=== PATIENT | female | born 1945 | race Caucasian/White ===

== ENCOUNTER 2016-07-29 04:20 | Outpatient (CLI) | payer MEDICARE, OTHER | END 2016-07-29 04:21 | disposition home or self-care (01) | DX: E11.65 Type 2 diabetes mellitus with hyperglycemia (principal); N39.0 Urinary tract infection, site not specified ==

== ENCOUNTER 2016-10-06 08:00 | Outpatient (CLI) | payer MEDICARE, OTHER | END 2016-10-06 08:01 | disposition home or self-care (01) | DX: N30.01 Acute cystitis with hematuria (principal) ==

== ENCOUNTER 2017-02-11 16:30 | Outpatient (CLI) | payer MEDICARE, OTHER | END 2017-02-11 16:31 | disposition home or self-care (01) | LOC: LAB.R 16:30 | PROVIDERS: ATTEND Physician Assistant Medical | DX: N30.00 Acute cystitis without hematuria (principal) | CPT/HCPCS: 87086 ==

== ENCOUNTER 2017-09-07 08:00 | Outpatient (CLI) | payer MEDICARE, OTHER | END 2017-09-07 08:01 | LOC: LAB.R 08:00 | PROVIDERS: ATTEND Physician Assistant Medical | DX: N30.00 Acute cystitis without hematuria (principal) | CPT/HCPCS: 81001; 81003; 87086; 87181 ==

== ENCOUNTER 2017-10-19 12:29 | Outpatient (CLI) | payer MEDICARE, OTHER | END 2017-10-19 12:30 | disposition home or self-care (01) | LOC: DI 12:29 | PROVIDERS: ATTEND Nurse Practitioner Primary Care | DX: R01.1 Cardiac murmur, unspecified (principal) | CPT/HCPCS: 93306 ==

== ENCOUNTER 2017-12-08 10:03 | Outpatient (CLI) | payer MEDICARE, OTHER ==
[2017-12-08 18:05] LABS: BASOPHILS % (AUTO) 0.8 %; EOSINOPHILS # (AUTO) 0.1 10^3/uL (0.0-0.7); EOSINOPHILS % (AUTO) 2.4 %; HGB - HEMOGLOBIN 14.1 g/dL (12.0-16.0); LYMPHOCYTES # (AUTO) 1.1 10^3/uL (1.5-3.5); LYMPHOCYTES % (AUTO) 21.1 %; MEAN CORPUSCULAR HEMOGLOBIN 32.7 pg (27.0-31.0); MEAN CORPUSCULAR HGB CONC 34.4 g/dL (32.0-36.0); MEAN PLATELET VOLUME 8.1 fL (7.9-10.8); MONOCYTES # (AUTO) 0.4 10^3/uL (0.0-1.0); MONOCYTES % (AUTO) 7.8 %; NEUTROPHILS # (AUTO) 3.5 10^3/uL (1.5-6.6); NEUTROPHILS % (AUTO) 67.9 %; PLT - PLATELET COUNT 221 10^3/uL (130-450); WHITE BLOOD COUNT 5.2 x10^3/uL (4.8-10.8)
[2017-12-08 18:43] LABS: ALBUMIN/GLOBULIN RATIO 1.4 (1.0-2.2); ALKALINE PHOSPHATASE 74 IU/L (42-121); ALT ALANINE AMINOTRANSFERASE 20 IU/L (10-60); AST ASPARTATE AMINOTRANSFERASE 21 IU/L (10-42); BILIRUBIN,TOTAL 0.7 mg/dL (0.2-1.0); BUN - BLOOD UREA NITROGEN 15 mg/dL (6-20); CARBON DIOXIDE - CO2 28 mmol/L (21-32); CHLORIDE 106 mmol/L (101-111); CHOL/HDL RATIO 2.9 (<4.4); CHOLESTEROL 223 mg/dL; CREATININE 0.8 mg/dL (0.4-1.0); GFR - MDRD 70 (>89); GLUCOSE 111 mg/dL (70-100); HDL CHOLESTEROL 76 mg/dL; LDL CHOLESTEROL,CALCULATED 124 mg/dL; LDL/HDL RATIO 1.6 (<4.4); SODIUM 141 mmol/L (135-145); TOTAL PROTEIN 6.8 g/dL (6.7-8.2); VLDL CHOLESTEROL 23 mg/dL
== END 2017-12-08 10:04 | disposition home or self-care (01) ==
LOC: LAB.F 10:03
PROVIDERS: ATTEND Internal Medicine
DX: E78.5 Hyperlipidemia, unspecified (principal); Z79.899 Other long term (current) drug therapy; F32.9 Major depressive disorder, single episode, unspecified
CPT/HCPCS: 36415; 80053; 80061; 83721; 84443; 85025

== ENCOUNTER 2017-12-10 15:04 | Outpatient (CLI) | payer MEDICARE, OTHER ==
--- NOTE | 2017-12-11 01:44 | Ultrasound Report ---
Reason: POSTMENOPAUSAL BLEEDING Procedure Date: 12/10/2017 Accession Number: [id number] / [id number] Procedure: US - Pelvic w/Transvaginal CPT Code: FULL RESULT: EXAM: PELVIC ULTRASOUND EXAM DATE: 12/10/2017 04:26 PM. CLINICAL HISTORY: Postmenopausal bleeding. COMPARISON: Pelvic with transvaginal 07/02/2015. TECHNIQUE: Realtime transabdominal pelvic scan performed to identify the uterus and adnexa and as an overview of other pelvic structures, followed by transvaginal scan to provide greater detail of the uterus and adnexa, with static image documentation. FINDINGS: Uterus: 5.3 x 3.5 x 3.5 cm, volume 34.0 cc. Retroverted and retroflexed position. No masses are noted. Heterogeneous parenchyma. Masses: None. Endometrium: 8.3 mm. Thickened heterogeneous endometrium. No invasion of the myometrium is noted. Cervix: Unremarkable. Right Ovary: 7.3 x 6.4 x 5.9 cm, volume 144.2 cc. Normal echotexture and blood flow. Anechoic 6.4 x 5.6 x 5.8 cm right ovarian cyst. No wall irregularities, mural nodules or thickened septations. Previously measuring 5 x 3.8 x 3.6 cm. Left Ovary: 3.5 x 2.7 x 3.4 cm, volume 16.8 cc. Normal echotexture and blood flow. Solid-appearing left ovarian avascular mass measuring at least 2.4 x 3.3 cm. Low level internal echoes. No thickened septations or mural nodules are noted. Free Fluid: None. Other: None. IMPRESSION: 1. Thickened endometrium measuring 8.3 mm. This is thicker than typically seen for a postmenopausal woman. Differential includes endometrial hyperplasia versus endometrial carcinoma. If symptoms persist, recommend endometrial sampling. Previously measuring 7 mm. 2. Slow increase in the size of the 6.4 cm simple right ovarian cyst. 3. Prominent solid-appearing component of the left ovary measuring up to 3.3 cm. No vascularity. Findings could be better characterized with MRI on an outpatient basis. Given a similar appearance, presume that this is likely benign and may be normal parenchyma. RADIA
== END 2017-12-10 15:05 | disposition home or self-care (01) ==
LOC: DI 15:04
PROVIDERS: ATTEND Obstetrics & Gynecology
DX: R93.8 Abnormal findings on diagnostic imaging of other specified body structures (principal); N83.291 Other ovarian cyst, right side; N83.9 Noninflammatory disorder of ovary, fallopian tube and broad ligament, unspecified
CPT/HCPCS: 76830; 76856

== ENCOUNTER 2017-12-16 08:00 | Outpatient (CLI) | payer MEDICARE, OTHER ==
[2017-12-16 19:01] LABS: HB2 TOTAL 15.2 g/dL; HEMOGLOBIN A1C 0.51 g/dL; HEMOGLOBIN A1C % 5.2 % (4.6-6.2)
== END 2017-12-16 08:01 | disposition home or self-care (01) ==
LOC: LAB.R 08:00
PROVIDERS: ATTEND Internal Medicine
DX: R73.9 Hyperglycemia, unspecified (principal); N83.9 Noninflammatory disorder of ovary, fallopian tube and broad ligament, unspecified
CPT/HCPCS: 83036; 86304

== ENCOUNTER 2017-12-31 15:06 | Outpatient (CLI) | payer MEDICARE, OTHER ==
--- NOTE | 2018-01-04 15:01 | Mammography Report ---
Reason: SCREENING MAMMO Procedure Date: 12/31/2017 Accession Number: [id number] / [id number] Procedure: KAVEH - Screening Mammo Dig Bilat CPT Code: FULL RESULT: EXAM: Screening Mammo Dig Bilat DATE: 12/31/2017 3:36 PM CLINICAL HISTORY: 72-year-old female with family history of breast cancer in a sister at the age of 68. TECHNIQUE: Bilateral CC and MLO views were obtained. COMPARISON: 03/17/2016, 02/11/2012, 02/04/2012, 12/25/2006. FINDINGS: The breasts demonstrate scattered fibroglandular densities bilaterally. No suspicious masses, clustered microcalcifications, or regions of architectural distortion are identified. IMPRESSION: Negative examination RECOMMENDATION: Routine annual screening unless otherwise clinically indicated. BIRADS CATEGORY 1: Negative STANDARD QUALIFYING STATEMENTS: 1. This examination was not reviewed with the aid of Computer-Aided Detection (CAD). 2. A negative or benign imaging report should not delay biopsy if clinically suspicious findings are present. Consider surgical consultation if warrented. More than 5% of cancers are not identified by imaging. 3. Dense breasts may obscure an underlying neoplasm. 4. This examination was reviewed without the aid of 3D breast imaging (tomosynthesis).
== END 2017-12-31 15:07 | disposition home or self-care (01) ==
LOC: DI 15:06
PROVIDERS: ATTEND Internal Medicine
DX: Z12.31 Encounter for screening mammogram for malignant neoplasm of breast (principal); Z80.3 Family history of malignant neoplasm of breast
CPT/HCPCS: 77067

== ENCOUNTER 2018-02-03 07:25 | Day surgery (SDC) | payer MEDICARE, OTHER ==
--- NOTE | 2018-02-02 11:31 | PREOP HISTORY & PHYSICAL ---
DATE OF ADMISSION: 02/03/2018 Physician: Ashely Clement DO PREOPERATIVE HISTORY AND PHYSICAL IDENTIFICATION: This is a 72-year-old G3, P-3-0-0-3. HISTORY OF PRESENT ILLNESS: I have known patient since 2015, when she had an episode of postmenopausal bleeding. A 07/09/2015 endometrial biopsy revealed inactive endometrium. A 07/02/2015 pelvic ultrasound showed endometrial lining that was complex, measuring 7 mm. Patient was given medroxyprogesterone acetone and recommended to follow up if this reoccurs. On 11/27/2017 patient returned to see me, saying that she continued to have spotting. Workup revealed a 12/10/2017 pelvic ultrasound showing uterus measuring 5.3 x 3.5 x 3.5 cm. Uterus is retroflexed and retroverted. Endometrium measures 8.3 mm. The right ovary measures 7.3 x 6.4 x 5.9 cm. There is anechoic 6.4 x 5.6 x 5.8 cm right ovarian cyst. There were no wall irregularities, mural nodules, or thickened septations. Left ovary measures 3.5 x 2.7 x 3.4 cm. Solid appearing left ovarian vascular mass measures 2.4 x 3.3 cm. Given these findings, I discussed with patient and her , Rory, my recommendations for laparoscopic bilateral salpingo-oophorectomy as well as a hysteroscopy, dilatation and curettage. I have discussed with Rory and patient the risks, benefits, alternatives, indications, expectations of surgery. This included the risk of hemorrhage, infection, damage to surrounding organs which may be an inadvertent laceration, cauterization, or ligation of the adjacent intestines, ureters, or bladder. With respect to the hysteroscopy, there is an increased risk of uterine perforation. After all of Rory and patient's questions were answered to their satisfaction, they verbalized their desire to proceed with surgery. Consent forms have been signed. PAST MEDICAL HISTORY 1. intracerebral hemorrhage. 2. Stroke affecting her left side. 3. Borderline diabetes mellitus. 4. Hypercholesterolemia. PAST SURGICAL HISTORY 1. Tonsillectomy. 2. Craniotomy. 3. PEG tube placement. MEDICATIONS 1. Oxybutynin. 2. Paroxetine. 3. Diltiazem. 4. Doxazosin 5. Losartan. 6. Metformin. 7. Omeprazole. She uses [facility] in [place]. SOCIAL HISTORY: She denies any tobacco or illicit drug use. She does consume wine on a rare occasion. Patient is to Rory, and they have 3 children and 9 grandchildren. PAST SURGICAL HISTORY: Three term spontaneous vaginal deliveries, largest one was 9 pounds 2 ounces. PAST GYNECOLOGIC HISTORY: All Pap smears have been within normal limits. Patient has a history of postmenopausal bleeding. FAMILY HISTORY: Noncontributory. REVIEW OF SYSTEMS: Negative unless otherwise stated. PHYSICAL EXAMINATION VITAL SIGNS: Weight is 207 pounds, height 66 inches, BMI 33.4. GENERAL: Patient is a well-developed, well-nourished female who is very pleasant. She has difficulty speaking and has a difficult time recalling specific words and she has short-term memory. HEENT: Within normal limits. HEART: Regular, no murmurs or rubs. LUNGS: Lungs are clear to auscultation bilaterally. ABDOMEN: Soft. No peritoneal signs. ASSESSMENT 1. A 72-year-old G3, P-3-0-0-3. 2. Postmenopausal bleeding. 3. Bilateral ovarian masses. PLAN 1. We will proceed to a scheduled laparoscopic bilateral salpingo-oophorectomy with pelvic washings, as well as a hysteroscopy, dilatation and curettage. 2. Patient will see me in 2 weeks for routine postoperative visit. 3. Prescription for Vicodin and Motrin for patient's recovery. 4. Patient knows to call should she have any worsening fevers, chills, abdominal pain, or vaginal bleeding. TD: 02/02/2018 10:02 [facility]
[~2018-02-03 07:25] MED LIST: ACETAMINOPHEN 1,000 MG/100 ML 100 ML IV ONE; CELECOXIB 100 MG CAPSULE PO ONE; LACTATED RINGERS 1,000 ML IV ONE
--- NOTE | 2018-02-03 08:05 | ANESTHESIA ---
Pre-Anesthesia VS, & Labs - Diagnosis post menopausal bleeding, neoplasm of left ovary - Procedure myosure hysteroscopy, dilation and curratage, laparoscopic salpingectomy Vital Signs: Temp Pulse Resp BP Pulse Ox 37.0 C 60 16 158/77 H 97 02/03/18 07:49 02/03/18 07:49 02/03/18 07:49 02/03/18 07:49 02/03/18 07:49 Height 5 ft 5 in Weight (kg) 90.72 kg - NPO >8 hours - Is Patient ?: Not Applicable - Lab Results Current Lab Results: Laboratory Tests 02/03/18 07:53: POC Whole Bld Glucose 113 H Lab results reviewed: Yes Home Medications and Allergies Diltiazem HCl [Diltiazem 24Hr ER] 240 mg PO BID 11/24/12 Losartan [Cozaar] 100 mg PO DAILY 11/24/12 Metformin HCl [Fortamet] 500 mg PO BID 11/24/12 PARoxetine [Paxil] 40 mg PO DAILY 11/24/12 Pravastatin Sodium [Pravachol] 40 mg PO DAILY 11/24/12 Allergies/Adverse Reactions: Allergies Allergy/AdvReac Type Severity Reaction Status Date / Time amitriptyline [Amitriptyline] Allergy unknown Verified 04/30/14 18:21 epinephrine Allergy Unknown Verified 04/30/14 18:23 oxycodone [Oxycodone] Allergy unkown Verified 04/30/14 18:21 pseudoephedrine Allergy unknown Verified 04/30/14 18:21 Sulfa (Sulfonamide Allergy unkown Verified 04/30/14 18:21 Antibiotics) tetracycline [Tetracycline] Allergy unkown Verified 04/30/14 18:21 Anes History & Medical History - Anesthetic History Anesthesia Complications: reports: No previous complications Family history of Anesthesia Complications: Denies Family history of Malignant Hyperthermia: Denies - Medical History Cardiovascular: reports: Hypertension, High cholesterol Pulmonary: reports: Shortness of breath Gastrointestinal: reports: GERD Urinary: reports: Frequency Musculoskeletal: reports: Osteoarthritis Endocrine/Autoimmune: reports: Type 2 diabetes Skin: reports: None Smoking Status: Never smoker - Surgical History Eyes Ears Nose Throat (EENT): Cataracts Neurologic: Craniotomy Dermatologic: Skin cancer surgery Exam General: Other (had stroke has aphasia) Dental: WNL Mouth Openin Fingerbreadth Neck Mobility: Normal Mallampati classification: II Thyromental Distance: greater than 6 cm Respiratory: Lungs clear, Normal breath sounds, No respiratory distress, No accessory muscle use Cardiovascular: Regular rate, Normal S1, Normal S2, No murmurs Plan Anesthesia Type: General Consent for Procedure(s) Verified and Reviewed: Yes Code Status: Attempt Resuscitation ASA classification: 2-Mild systemic disease Is this case an emergency?: No
[2018-02-03] MEDS ORDERED: LIDOCAINE 1% 50 ML MDV ONE (09:11)
[2018-02-03] MEDS ORDERED: LIDOCAINE 1% 50 ML MDV SUBQ ONE ×2 (09:43)
[2018-02-03] MEDS ORDERED: PROPOFOL 200 MG/20 ML VIAL IVP ONE (10:00)
[2018-02-03] MEDS ORDERED: DEXAMETHASONE 4 MG/ML VIAL IVP ONE (10:00)
[2018-02-03] MEDS ORDERED: GLYCOPYRROLATE 1 MG/5 ML VIAL IVP ONE (10:00)
[2018-02-03] MEDS ORDERED: ONDANSETRON 4 MG/2 ML VIAL IVP ONE (10:00)
[2018-02-03] MEDS ORDERED: NEOSTIGMINE 1 MG/1 ML 10 ML MDV IVP ONE (10:00)
[2018-02-03] MEDS ORDERED: KETAMINE 500 MG/10 ML VIAL IVP ONE (10:00)
[2018-02-03] MEDS ORDERED: LIDOCAINE-MPF 2% 5 ML VIAL IM ONE (10:00)
[2018-02-03] MEDS ORDERED: MIDAZOLAM 2 MG/2 ML VIAL IVP ONE (10:00)
[2018-02-03] MEDS ORDERED: ACETAMINOPHEN 1,000 MG/100 ML 100 ML IV ONE (10:00)
[2018-02-03] MEDS ORDERED: ROCURONIUM 50 MG/5 ML VIAL IVP ONE (10:00)
[2018-02-03] MEDS ORDERED: METOPROLOL 5 MG/5 ML VIAL IVP ONE (10:00)
[2018-02-03] MEDS ORDERED: fentaNYL 100 MCG/2 ML VIAL IVP ONE (10:00)
[2018-02-03] MEDS ORDERED: LACTATED RINGERS 1,000 ML IV ONE (10:44)
[2018-02-03] MEDS ORDERED: INSULIN REGULAR HUMAN 100 UNIT/1 ML 10 ML MDV ONE (10:54)
[2018-02-03] MEDS ORDERED: METHYLENE BLUE 0.5% 50 MG/10 ML AMPULE ONE (10:57)
[2018-02-03] MEDS ORDERED: METHYLENE BLUE 0.5% 50 MG/10 ML AMPULE IV ONE (10:58)
--- NOTE | 2018-02-03 12:02 | OPERATIVE REPORT ---
Operative Report - Other Other Information/Narrative: Date of Operation: 02/03/2018 Surgeon: Ashely Clement DO FACOG Bread Oven Operator: None Alcoholic Counselor: Leann Dahl CRNA Anesthesia: GET Pre-op Dx: 1. 72 yo 2. Postmenopausal bleeding 3. Bilateral ovarian masses Post-op Dx: 1. 72 yo 2. Postmenopausal bleeding 3. Bilateral ovarian masses Procedure: 1. Laparoscopic bilateral salpingo-oophorectomy 2. Hysteroscopic resection of polyp via Myosure 3. Cystoscopy Findings: 1. Atrophic uterus 2. Large cystic right ovary 3. 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 Small anterior endometrial polyp 5. Normal bladder with bilateral ureteral jets visualized Specimens: 1. Pelvic washings 2. Aspirate from right ovary 3. Right and left ovaries and fallopian tubes in separate specimen containers 4. Endometrial curettings Drains: None EBL: 100 mL Complications: None BRIEF HISTORY: This is a patient of [facility]. Alicia has a history of postmenopausal bleeding. Due to her discomfort from a previous endometrial biopsy she elected to undergo endometrial sampling under general anesthesia. In addition, work up for her postmenopausal bleeding revealed bilateral ovarian masses. I discussed with Chantel the risks, benefits, alternatives, indications and expectations of a laparoscopic bilateral salpingo- oophorectomy, hysteroscopy, and dilation and curettage. Included in the discussion were the risks of infection, hemorrhage and damage to surrounding organs which may include, but is not limited to, an inadvertent laceration, cauterization or ligation of the adjacent intestines, ureters and bladder. With respect to the hysteroscopy the most common complication is uterine performation. After all of the patient's questions were answered to her satisfaction, she verbalized her desire to proceed with the aforementioned surgery. Consent forms have been signed. OPERATION IN DETAIL: The patient was identified, consented, and taken to the operating room, where IV accesses were then placed. She was given sequential compression devices which were placed on her lower extremities and turned on. The patient had been given satisfactory general endotracheal tube anesthesia as per Leann Dahl. Antibiotics were not indicated in this case. The patient was then prepped and draped in normal sterile fashion in the lithotomy position using the Yellofin stirrups. Her bladder was drained with in and out Soriano catheter. Timeout was performed, which correctly identified the patient, site of the procedure, and the procedure itself. Three laparoscopic port sites were first identified. The first two were all of 5 mm in length, located in subumbilical fold and in the right lower quadrants, 2 fingerbreadths superior and medial from the anterior posterior iliac spine. A third 12 mm trocar was placed in the left lower quadrant, 2 fingerbreadths superior and medial to the anterior superior iliac spine. All port sites were injected with plain 1% lidocaine. These port sites were also reinjected at the termination of the case for better postoperative pain control. A total of 20 mL were used for the entirety of the case. Stab incisions were made. Entrance to the abdomen was first made with the 5 mm Visiport trocar directly. No trauma to intraabdominal organs was noted. After visual confirmation of entry into the abdomen was made, CO2 gas was used to insufflate the abdomen. Satisfactory pneumoperitoneum was then obtained. The 2 lower quadrant laparoscopic port sites were then placed under direct visualization with the camera. No trauma to intraabdominal organs were noted. Survey of the abdomen and pelvis revealed a very socked in left adnexa and an enlarged right adnexa. The anatomy was noted to be quite distorted. The uterus was very small, consistent with menopause. The right fallopian tube was first identified and followed out to its fimbriated end. The right adnexa was carefully inspected. Again the anatomy was distorted due to the enlarged ovary. Inspection of the right pelvis did not show the right ureter frankly. An incision was made through the right insertion of the fallopian tube into the uterus. The right ovary was then bluntly dissected from the broad ligament. The right ureter was then attempted to be identified by dissection of the retroperitoneum. Again due to the abnormal anatomy I could not find the ureter. A fourth, 5 mm trocar was placed in the midline inferior to the supraumbilical port. This was used to retract the bowel for better visualization. The right ovary was then excised from the pelvis and removed via the Endocatch bag. The right ovary was aspirated in the Endocatch bag with a needle so that the ovary and fallopian tube were removed without additional trauma and that the fluid would not seed the pelvis and abdomen. Next, the left adnexa was addressed. The adnexa was socked behind the uterus in the cul-de-sac. Inadvertent lacerations to the ovary revealed a thick, brown, opaque fluid consistent with an endometrioma. The adnexa was buntly and sharply excised. Portions of the ovary were likely left on the peritoneum as I perferred not to injure the rectum posteriorly. This too was removed via an Endocatch bag. Attention was then turned to the hysteroscopy, dilation and curettage. The cervix was identified and then dilated to a 5-Estonian. The MyoSure hysteroscopic system was then placed into the uterus and normal saline solution was used as a distending medium. Upon visualization of the endom etrium, there was a polyp coming from the anterior endometrium. No other abnormalities were noted. Normal tubal ostia bilaterally were noted. With the MyoSure LITE, the polyps was excised from the endometrium. The specimens were sent to pathology. There was no bleeding fro m the cervix or vagina. Finally cystoscopy was performed since I could locate the ureters. A 30-degree cystoscope was placed in the bladder and the bladder was inspected. 0.9% NaCl was used as the distending media. No trauma, bleeding or sutures were noted in the bladder. Both ureteral jets were seen. The cystoscope was removed. I returned to the abdomen for closure of the laparoscopy. The 12 mm incision was closed with a 0-vicryl using a Smith-Tomason peritoneal closure. All instruments then were removed out of the abdomen and the CO2 gas was allowed to egress into the atmosphere, relieving the pneumoperitoneum. All 4 laparoscopic port sites were then closed with 4- 0 Monocryl in subcuticular fashion. Dermabond was finally placed on top of the incisions. All sponge, lap and needle counts were correct times two as per nurse report. The patient tolerated the procedure well and was taken back to recovery room in stable condition. The patient will be discharged to home later today after postoperative criteria are met. The patient is to followup with myself at [facility] [place] [facility] in 2 weeks for routine postop visit. She has been instructed to take ibuprofen as well as Tylenol as her main form of pain control. She has a prescription for Vicodin for any breakthrough pain she may experience. The patient understands to call should she have any worsening fevers, chills, abdominal pain or vaginal bleeding.
[2018-02-03] MEDS ORDERED: LORazepam 2 MG/ML VIAL IVP PRN (12:38)
[2018-02-03] MEDS ORDERED: HYDROcod/ACETAM 5/325 MG TABLET PO PRN (12:38)
[2018-02-03] MEDS ORDERED: ONDANSETRON 4 MG/2 ML VIAL IVP PRN (12:38)
[2018-02-03] MEDS ORDERED: LACTATED RINGERS 500 ML IV ONE ×2 (14:05)
[2018-02-03 14:20] VITALS: BP 160/78
== END 2018-02-03 07:26 | disposition home or self-care (01) ==
LOC: SDS 07:25
PROVIDERS: ATTEND Obstetrics & Gynecology
PROC: 0TJB8ZZ Inspection of Bladder, Via Natural or Artificial Opening Endoscopic (ICD-10-PCS; 2018-02-03)
PROC: 0UT24ZZ Resection of Bilateral Ovaries, Percutaneous Endoscopic Approach (ICD-10-PCS; principal; 2018-02-03 09:00)
PROC: 0UT74ZZ Resection of Bilateral Fallopian Tubes, Percutaneous Endoscopic Approach (ICD-10-PCS; 2018-02-03 09:00)
PROC: 0UB98ZZ Excision of Uterus, Via Natural or Artificial Opening Endoscopic (ICD-10-PCS; 2018-02-03 09:00)
DX: N84.0 Polyp of corpus uteri (principal); D27.1 Benign neoplasm of left ovary; D27.0 Benign neoplasm of right ovary; I10 Essential (primary) hypertension; R73.03 Prediabetes; I69.354 Hemiplegia and hemiparesis following cerebral infarction affecting left non-dominant side; I69.320 Aphasia following cerebral infarction; E78.00 Pure hypercholesterolemia, unspecified; K21.9 Gastro-esophageal reflux disease without esophagitis; Z85.828 Personal history of other malignant neoplasm of skin; Z86.79 Personal history of other diseases of the circulatory system
CPT/HCPCS: 58558; 58661; A9270; J0131; J1815; J7120

== ENCOUNTER 2018-02-11 14:45 | Emergency (ER) | payer MEDICARE, OTHER ==
--- NOTE | 2018-02-11 15:14 | ED Physician Documentation ---
PD HPI FEMALE - Stated complaint Stated Complaint: FEM -POST OP - Chief complaint Chief Complaint: Abd Pain - History obtained from History obtained from: Patient, Family - History of Present Illness Timing - onset: How many hours ago (2) Timing - duration: Hours (2) Timing - details: Abrupt onset, Intermittant Pain level max: 0 Pain level max: 0 Associated symptoms: Abdominal pain, Vaginal bleeding. No: Fever, Back pain, Pelvic pain, Vaginal pain, Vaginal discharge, Dysuria, Urinary frequency, Hematuria Recently seen: Surgery - Additional information Additional information: 72-year-old female with history of hypertension and recent surgery for uterine mass and vaginal bleeding. Dr. Ashely Clement performed laparoscopic exploration and removal of her fallopian tubes and ovaries and mass in the uterus last February 03. Patient stated since surgery she has been having intermittent spotting. However today she had large amount of bleeding twice. She states she has abdominal pain related to the surgery. Review of Systems Ten Systems: 10 systems reviewed and negative Constitutional: denies: Fever, Chills, Myalgias Respiratory: denies: Dyspnea GI: reports: Abdominal Pain. denies: Abdominal Swelling, Nausea, Vomiting, Constipation, Diarrhea, Bloody / black stool : reports: Vaginal bleeding. denies: Dysuria, Incontinent, Hematuria, Discharge Musculoskeletal: denies: Back pain Neurologic: denies: Generalized weakness PD PAST MEDICAL HISTORY - Past Medical History Cardiovascular: Hypertension, High cholesterol Respiratory: Shortness of breath Endocrine/Autoimmune: Type 2 diabetes GI: GERD : Frequency HEENT: Chronic vision loss Psych: Depression, Anxiety Musculoskeletal: Osteoarthritis Derm: None - Past Surgical History Past Surgical History: Yes General: Colonoscopy Neuro: Craniotomy HEENT: Cataracts Derm: Skin cancer surgery - Present Medications Home Medications: Ambulatory Orders Medication Instructions Recorded Confirmed Diltiazem HCl [Diltiazem 24Hr ER] 240 mg PO BID 11/24/12 02/03/18 Losartan [Cozaar] 100 mg PO DAILY 11/24/12 02/03/18 Metformin HCl [Fortamet] 500 mg PO BID 11/24/12 02/03/18 PARoxetine [Paxil] 40 mg PO DAILY 11/24/12 02/03/18 Pravastatin Sodium [Pravachol] 40 mg PO DAILY 11/24/12 02/03/18 - Allergies Allergies/Adverse Reactions: Allergies Allergy/AdvReac Type Severity Reaction Status Date / Time amitriptyline [Amitriptyline] Allergy unknown Verified 02/11/18 14:51 epinephrine Allergy Unknown Verified 02/11/18 14:51 oxycodone [Oxycodone] Allergy unkown Verified 02/11/18 14:51 pseudoephedrine Allergy unknown Verified 02/11/18 14:51 Sulfa (Sulfonamide Allergy unkown Verified 02/11/18 14:51 Antibiotics) tetracycline [Tetracycline] Allergy unkown Verified 02/11/18 14:51 - Social History Does the pt smoke?: No Smoking Status: Never smoker Does the pt drink ETOH?: Yes Does the pt have substance abuse?: No - POLST Patient has POLST: No PD ED PE NORMAL - Vitals Vital signs reviewed: Yes - General General: Alert and oriented X 3, No acute distress, Well developed/nourished - HEENT HEENT: EOMI - Neck Neck: Supple, no meningeal sign - Cardiac Cardiac: RRR, No murmur - Respiratory Respiratory: No respiratory distress, Clear bilaterally - Abdomen Abdomen: Normal bowel sounds, Soft, Non tender, Non distended, Other (Purplish ecchymosis and 2 laparoscopic incisional site that is approximated.) - Derm Derm: Warm and dry - Extremities Extremities: No deformity - Neuro Neuro: Alert and oriented X 3 - Psych Psych: Normal mood, Normal affect Results - Vitals Vitals: Vital Signs - 24 hr 02/11/18 14:48 Temperature 36.0 C L Heart Rate 63 Respiratory 16 Rate Blood Pressure 176/78 H O2 Saturation 98 Oxygen O2 Source Room air - Labs Labs: Laboratory Tests 02/11/18 02/11/18 15:33 15:33 WBC 7.0 RBC 3.83 L Hgb 12.5 Hct 36.2 L MCV 94.6 MCH 32.6 H MCHC 34.5 RDW 12.5 Plt Count 244 MPV 7.2 L Neut # (Auto) 4.7 Lymph # (Auto) 1.3 L Mckinley # (Auto) 0.8 Eos # (Auto) 0.2 Baso # (Auto) 0.0 Absolute Nucleated RBC 0.00 Nucleated RBC % 0.0 Sodium 137 Potassium 3.9 Chloride 105 Carbon Dioxide 24 Anion Gap 8.0 BUN 21 H Creatinine 1.0 Estimated GFR (MDRD) 54 L Glucose 124 H Calcium 8.6 PD MEDICAL DECISION MAKING - ED course Complexity details: considered differential (Postop vaginal bleeding, anemia), d/w patient, d/w family (Pt and spouse informed of test results and consult with EMERGENCY MEDICINE SPECIALIST. Agreed with plan of outpatient followup. Pt just went to the bathroom and pad unchanged; no further bleeding.), d/w baby registry sales consultant - Consults Consults: Discussed case with (Dr Nathan, OB pest control service representative covering for pt's EMERGENCY MEDICINE SPECIALIST dr Clement. Case discussed including labs. He stated pt can be followed up at the clinic. They can call tomorrow for appt) Departure - Departure Disposition: Home, Self Care Clinical Impression: Vaginal bleeding, Post-operative pain Post-op bleeding Qualifiers: Surgical complication system/body Area: genitourinary Procedure type: genitourinary Qualified Code(s): N99.820 - Postprocedural hemorrhage of a genitourinary system organ or structure following a genitourinary system procedure Condition: Stable Instructions: Abdominal Pain Follow-Up: Ashely Clement, [Provider Admit Priv/Credential] - Comments: Call your EMERGENCY MEDICINE SPECIALIST tomorrow for an appointment to reevaluate your postop vaginal bleeding. If worse return to the emergency room.
[2018-02-11 15:42] LABS: BASOPHILS % (AUTO) 0.5 %; EOSINOPHILS # (AUTO) 0.2 10^3/uL (0.0-0.7); EOSINOPHILS % (AUTO) 2.7 %; HGB - HEMOGLOBIN 12.5 g/dL (12.0-16.0); LYMPHOCYTES # (AUTO) 1.3 10^3/uL (1.5-3.5); LYMPHOCYTES % (AUTO) 18.8 %; MEAN CORPUSCULAR HEMOGLOBIN 32.6 pg (27.0-31.0); MEAN CORPUSCULAR HGB CONC 34.5 g/dL (32.0-36.0); MEAN CORPUSCULAR VOLUME 94.6 fL (81.0-99.0); MEAN PLATELET VOLUME 7.2 fL (7.9-10.8); MONOCYTES # (AUTO) 0.8 10^3/uL (0.0-1.0); NEUTROPHILS # (AUTO) 4.7 10^3/uL (1.5-6.6); PLT - PLATELET COUNT 244 10^3/uL (130-450); RED BLOOD COUNT 3.83 10^6/uL (4.20-5.40); RED CELL DISTRIBUTION WIDTH 12.5 % (12.0-15.0)
[2018-02-11 15:51] LABS: CALCIUM 8.6 mg/dL (8.5-10.3)
[2018-02-11 17:01] VITALS: BP 164/70
== END 2018-02-11 17:01 | disposition home or self-care (01) ==
LOC: ED 14:45
DX: N99.820 Postprocedural hemorrhage of a genitourinary system organ or structure following a genitourinary system procedure (principal); G89.18 Other acute postprocedural pain; I10 Essential (primary) hypertension; E11.9 Type 2 diabetes mellitus without complications; Z79.84 Long term (current) use of oral hypoglycemic drugs
CPT/HCPCS: 36415; 80048; 85025; 99283

== ENCOUNTER 2018-11-01 | Outpatient (CLI) | payer MEDICARE, OTHER | END 2018-11-01 11:16 | disposition home or self-care (01) | DX: E11.9 Type 2 diabetes mellitus without complications (principal) ==

== ENCOUNTER 2018-12-30 08:00 | Outpatient (CLI) | payer MEDICARE, OTHER ==
[2018-12-30 16:57] LABS: BILIRUBIN,URINE NEGATIVE (NEGATIVE); GLUCOSE, URINE (UA) NEGATIVE (NEGATIVE); KETONES,URINE (UA) TRACE mg/dL (NEGATIVE); LEUKOCYTE ESTERASE, URINE TRACE (NEGATIVE); NITRITE,URINE NEGATIVE (NEGATIVE); OCCULT BLOOD,URINE NEGATIVE (NEGATIVE); PH,URINE 6.5 PH (5.0-7.5); PROTEIN,URINE NEGATIVE (NEGATIVE); UROBILINOGEN,URINE 0.2 (NORMAL) E.U./dL (NORMAL)
[2018-12-30 17:01] LABS: CLARITY,URINE CLEAR (CLEAR)
[2018-12-30 17:32] LABS: BACTERIA,URINE Rare /HPF (None Seen); RBC,URINE None Seen /HPF (0-5); SQUAMOUS EPITHELIAL CELL,UR FEW Squamous (<= Few)
== END 2018-12-30 23:59 | disposition home or self-care (01) ==
LOC: LAB.R 08:00
PROVIDERS: ATTEND Family Medicine
DX: R30.0 Dysuria (principal)
CPT/HCPCS: 81001; 81003; 87086

== ENCOUNTER 2019-11-16 16:30 | Outpatient (CLI) | payer MEDICARE, OTHER ==
--- NOTE | 2019-11-16 17:18 | XRAY Report ---
PROCEDURE: Sinus Complete INDICATIONS: LEFT MAXILARRY SINUSITIS TECHNIQUE: 3 views of the sinuses were acquired. COMPARISON: None FINDINGS: Sinuses: The visualized sinuses demonstrate no air-fluid levels or mucosal thickening. The visualiz ed mastoids also appear clear. Bones: No suspicious bony lesions. Nasal septum is midline. IMPRESSION: Bilateral paranasal sinuses are fairly well aerated. No gross facial bone or nasal bone abnormality. Reviewed by: Raymundo Landrum MD on 11/16/2019 5:16 PM PDT Approved by: Raymundo Landrum MD on 11/16/2019 5:16 PM PDT Station ID: [id number]
== END 2019-11-16 16:31 | disposition home or self-care (01) ==
LOC: DI 16:30
PROVIDERS: ATTEND Nurse Practitioner Family
DX: J32.0 Chronic maxillary sinusitis (principal)
CPT/HCPCS: 70220

== ENCOUNTER 2019-11-17 15:01 | Outpatient (CLI) | payer MEDICARE, OTHER | END 2019-11-17 15:02 | disposition critical access hospital (66) | LOC: EMS 15:01 | PROVIDERS: ATTEND Surgery | DX: S09.90XA Unspecified injury of head, initial encounter (principal); M54.2 Cervicalgia; S50.811A Abrasion of right forearm, initial encounter; W01.0XXA Fall on same level from slipping, tripping and stumbling without subsequent striking against object, initial encounter; Y93.01 Activity, walking, marching and hiking; Y92.007 Garden or yard of unspecified non-institutional (private) residence as the place of occurrence of the external cause | CPT/HCPCS: A0425; A0429 ==

== ENCOUNTER 2019-12-01 12:28 | Outpatient (CLI) | payer MEDICARE, OTHER ==
[2019-12-01 12:54] LABS: BASOPHILS % (AUTO) 0.9 %; EOSINOPHILS # (AUTO) 0.1 10^3/uL (0.0-0.7); HGB - HEMOGLOBIN 14.2 g/dL (12.0-16.0); LYMPHOCYTES # (AUTO) 1.1 10^3/uL (1.5-3.5); LYMPHOCYTES % (AUTO) 23.8 %; MEAN CORPUSCULAR HGB CONC 34.1 g/dL (32.0-36.0); MEAN CORPUSCULAR VOLUME 90.8 fL (81.0-99.0); MEAN PLATELET VOLUME 9.5 fL (7.9-10.8); MONOCYTES # (AUTO) 0.4 10^3/uL (0.0-1.0); MONOCYTES % (AUTO) 7.8 %; NEUTROPHILS % (AUTO) 64.3 %; PLT - PLATELET COUNT 229 10^3/uL (130-450); RED BLOOD COUNT 4.58 10^6/uL (4.20-5.40); RED CELL DISTRIBUTION WIDTH 12.7 % (12.0-15.0); WHITE BLOOD COUNT 4.6 x10^3/uL (4.8-10.8)
[2019-12-01 13:13] LABS: ALBUMIN 4.1 g/dL (3.2-5.5); ALBUMIN/GLOBULIN RATIO 1.5 (1.0-2.2); ALKALINE PHOSPHATASE 101 IU/L (42-121); ALT ALANINE AMINOTRANSFERASE 45 IU/L (10-60); AST ASPARTATE AMINOTRANSFERASE 34 IU/L (10-42); BILIRUBIN,TOTAL 0.8 mg/dL (0.2-1.0); BUN - BLOOD UREA NITROGEN 14 mg/dL (6-20); CALCIUM 9.3 mg/dL (8.5-10.3); CARBON DIOXIDE - CO2 29 mmol/L (21-32); CHLORIDE 104 mmol/L (101-111); CHOL/HDL RATIO 2.8 (<4.4); CHOLESTEROL 182 mg/dL; CREATININE 0.8 mg/dL (0.4-1.0); GLUCOSE 117 mg/dL (70-100); HDL CHOLESTEROL 65 mg/dL; LDL CHOLESTEROL,CALCULATED 97 mg/dL; LDL/HDL RATIO 1.5 (<4.4); SODIUM 142 mmol/L (135-145); TOTAL PROTEIN 6.8 g/dL (6.7-8.2); VLDL CHOLESTEROL 20 mg/dL
[2019-12-01 13:23] LABS: CREATININE,URINE 136.6 mg/dL; MICROALBUM/CREATININE RATIO,UR 109.8 ug/mg (<30.0)
[2019-12-01 20:22] LABS: HEMOGLOBIN A1c% 5.4 % (4.27-6.07)
== END 2019-12-01 12:29 | disposition home or self-care (01) ==
LOC: LAB 12:28
PROVIDERS: ATTEND Family Medicine
DX: E78.5 Hyperlipidemia, unspecified (principal); R73.09 Other abnormal glucose; N95.0 Postmenopausal bleeding; F32.9 Major depressive disorder, single episode, unspecified; R31.9 Hematuria, unspecified
CPT/HCPCS: 36415; 80053; 80061; 82043; 82570; 83036; 83721; 84443; 85025

== ENCOUNTER 2019-12-21 16:39 | Outpatient (CLI) | payer MEDICARE, OTHER ==
[2019-12-21 17:00] LABS: BASOPHILS % (AUTO) 0.6 %; EOSINOPHILS # (AUTO) 0.1 10^3/uL (0.0-0.7); HGB - HEMOGLOBIN 14.2 g/dL (12.0-16.0); LYMPHOCYTES # (AUTO) 1.9 10^3/uL (1.5-3.5); LYMPHOCYTES % (AUTO) 27.1 %; MEAN CORPUSCULAR HEMOGLOBIN 30.5 pg (27.0-31.0); MEAN CORPUSCULAR HGB CONC 33.5 g/dL (32.0-36.0); MEAN CORPUSCULAR VOLUME 91.2 fL (81.0-99.0); MEAN PLATELET VOLUME 9.3 fL (7.9-10.8); MONOCYTES # (AUTO) 0.5 10^3/uL (0.0-1.0); MONOCYTES % (AUTO) 7.3 %; NEUTROPHILS # (AUTO) 4.5 10^3/uL (1.5-6.6); NEUTROPHILS % (AUTO) 62.7 %; PLT - PLATELET COUNT 224 10^3/uL (130-450); RED BLOOD COUNT 4.65 10^6/uL (4.20-5.40); RED CELL DISTRIBUTION WIDTH 12.9 % (12.0-15.0); WHITE BLOOD COUNT 7.2 x10^3/uL (4.8-10.8)
== END 2019-12-21 16:40 | disposition home or self-care (01) ==
LOC: LAB 16:39
PROVIDERS: ATTEND Family Medicine
DX: J32.0 Chronic maxillary sinusitis (principal); K04.7 Periapical abscess without sinus
CPT/HCPCS: 36415; 85025; 85651; 86140

== ENCOUNTER 2020-09-23 09:08 | Outpatient (CLI) | payer MEDICARE, OTHER ==
[2020-09-23 09:46] LABS: BASOPHILS % (AUTO) 0.7 %; EOSINOPHILS # (AUTO) 0.2 10^3/uL (0.0-0.7); EOSINOPHILS % (AUTO) 3.4 %; HCT - HEMATOCRIT 40.4 % (37.0-47.0); HGB - HEMOGLOBIN 13.6 g/dL (12.0-16.0); LYMPHOCYTES # (AUTO) 1.3 10^3/uL (1.5-3.5); LYMPHOCYTES % (AUTO) 23.9 %; MEAN CORPUSCULAR HEMOGLOBIN 30.5 pg (27.0-31.0); MEAN CORPUSCULAR HGB CONC 33.7 g/dL (32.0-36.0); MEAN CORPUSCULAR VOLUME 90.6 fL (81.0-99.0); MEAN PLATELET VOLUME 9.2 fL (7.9-10.8); MONOCYTES # (AUTO) 0.5 10^3/uL (0.0-1.0); MONOCYTES % (AUTO) 8.2 %; NEUTROPHILS # (AUTO) 3.5 10^3/uL (1.5-6.6); NEUTROPHILS % (AUTO) 63.4 %; PLT - PLATELET COUNT 222 10^3/uL (130-450); RED BLOOD COUNT 4.46 10^6/uL (4.20-5.40); RED CELL DISTRIBUTION WIDTH 12.7 % (12.0-15.0); WHITE BLOOD COUNT 5.5 x10^3/uL (4.8-10.8)
[2020-09-23 10:00] LABS: ESTIMATED AVERAGE GLUCOSE 108 mg/dL (70-100); HEMOGLOBIN A1c% 5.4 % (4.27-6.07)
[2020-09-23 10:06] LABS: ALBUMIN 4.1 g/dL (3.2-5.5); ALBUMIN/GLOBULIN RATIO 1.6 (1.0-2.2); ALKALINE PHOSPHATASE 95 IU/L (42-121); ALT ALANINE AMINOTRANSFERASE 47 IU/L (10-60); AST ASPARTATE AMINOTRANSFERASE 31 IU/L (10-42); BILIRUBIN,TOTAL 0.8 mg/dL (0.2-1.0); BUN - BLOOD UREA NITROGEN 23 mg/dL (6-20); CALCIUM 9.2 mg/dL (8.5-10.3); CARBON DIOXIDE - CO2 27 mmol/L (21-32); CHLORIDE 107 mmol/L (101-111); CHOL/HDL RATIO 3.3 (<4.4); CHOLESTEROL 229 mg/dL; GFR - MDRD 54 (>89); GLUCOSE 115 mg/dL (70-100); HDL CHOLESTEROL 69 mg/dL; LDL CHOLESTEROL,CALCULATED 142 mg/dL; LDL/HDL RATIO 2.1 (<4.4); SODIUM 142 mmol/L (135-145); TOTAL PROTEIN 6.7 g/dL (6.7-8.2); TRIGLYCERIDES 89 mg/dL; VLDL CHOLESTEROL 18 mg/dL
[2020-09-23 10:17] LABS: THYROID STIMULATING HORMONE 3.64 uIU/mL (0.34-5.60)
== END 2020-09-23 09:09 | disposition home or self-care (01) ==
LOC: LAB 09:08
PROVIDERS: ATTEND Family Medicine
DX: K21.9 Gastro-esophageal reflux disease without esophagitis (principal); I69.259 Hemiplegia and hemiparesis following other nontraumatic intracranial hemorrhage affecting unspecified side; I10 Essential (primary) hypertension; E78.5 Hyperlipidemia, unspecified; R73.03 Prediabetes
CPT/HCPCS: 36415; 80053; 80061; 83036; 83721; 84443; 85025

== ENCOUNTER 2020-11-05 16:35 | Outpatient (CLI) | payer MEDICARE, OTHER ==
[2020-11-05 20:10] LABS: BILIRUBIN,URINE NEGATIVE (NEGATIVE); GLUCOSE, URINE (UA) NEGATIVE (NEGATIVE); KETONES,URINE (UA) TRACE mg/dL (NEGATIVE); LEUKOCYTE ESTERASE, URINE MODERATE (NEGATIVE); NITRITE,URINE NEGATIVE (NEGATIVE); OCCULT BLOOD,URINE LARGE (NEGATIVE); PROTEIN,URINE 100 mg/dL (NEGATIVE); UROBILINOGEN,URINE 0.2 (NORMAL) E.U./dL (NORMAL)
[2020-11-05 20:31] LABS: CLARITY,URINE CLOUDY (CLEAR); WBC,URINE >25 /HPF (0-5)
[2020-11-05 20:32] LABS: BACTERIA,URINE Rare /HPF (None Seen); CRYSTALS,URINE 0-2 Calcium Oxalate /LPF; RBC,URINE TNTC /HPF (0-5); SQUAMOUS EPITHELIAL CELL,UR NONE SEEN (<= Few); WBC CLUMPS,URINE PRESENT
== END 2020-11-05 23:59 | disposition home or self-care (01) ==
LOC: LAB.S 16:35
PROVIDERS: ATTEND Emergency Medicine
DX: R30.0 Dysuria (principal)
CPT/HCPCS: 81001; 87086; 87181

== ENCOUNTER 2020-12-18 11:14 | Outpatient (CLI) | payer MEDICARE, OTHER ==
[2020-12-18 11:35] LABS: BASOPHILS # (AUTO) 0.1 10^3/uL (0.0-0.1); BASOPHILS % (AUTO) 0.8 %; EOSINOPHILS # (AUTO) 0.3 10^3/uL (0.0-0.7); EOSINOPHILS % (AUTO) 4.1 %; HCT - HEMATOCRIT 40.6 % (37.0-47.0); HGB - HEMOGLOBIN 13.6 g/dL (12.0-16.0); LYMPHOCYTES # (AUTO) 1.1 10^3/uL (1.5-3.5); LYMPHOCYTES % (AUTO) 18.2 %; MEAN CORPUSCULAR HEMOGLOBIN 30.6 pg (27.0-31.0); MEAN CORPUSCULAR HGB CONC 33.5 g/dL (32.0-36.0); MEAN CORPUSCULAR VOLUME 91.4 fL (81.0-99.0); MONOCYTES # (AUTO) 0.5 10^3/uL (0.0-1.0); MONOCYTES % (AUTO) 7.9 %; NEUTROPHILS # (AUTO) 4.2 10^3/uL (1.5-6.6); NEUTROPHILS % (AUTO) 68.8 %; PLT - PLATELET COUNT 253 10^3/uL (130-450); RED BLOOD COUNT 4.44 10^6/uL (4.20-5.40); RED CELL DISTRIBUTION WIDTH 13.2 % (12.0-15.0); WHITE BLOOD COUNT 6.1 x10^3/uL (4.8-10.8)
[2020-12-18 11:46] LABS: CALCIUM 9.3 mg/dL (8.5-10.3); CREATININE 0.8 mg/dL (0.4-1.0)
[2020-12-18 12:45] LABS: ESTIMATED AVERAGE GLUCOSE 103 mg/dL (70-100); HEMOGLOBIN A1c% 5.2 % (4.27-6.07)
== END 2020-12-18 11:15 | disposition home or self-care (01) ==
LOC: LAB 11:14
PROVIDERS: ATTEND Family Medicine
DX: K62.5 Hemorrhage of anus and rectum (principal); E11.9 Type 2 diabetes mellitus without complications
CPT/HCPCS: 36415; 80048; 83036; 85025

== ENCOUNTER 2021-03-06 08:00 | Outpatient (CLI) | payer MEDICARE, OTHER | END 2021-03-06 23:59 | LOC: LAB.N 08:00 | PROVIDERS: ATTEND Physician Assistant | DX: R30.0 Dysuria (principal) | CPT/HCPCS: 87077; 87086; 87181 ==

== ENCOUNTER 2021-05-13 10:32 | Day surgery (SDC) | payer MEDICARE, OTHER ==
[2021-05-13] MEDS ORDERED: LACTATED RINGERS 1,000 ML IV ONE ×2 (11:17→12:24)
--- NOTE | 2021-05-13 11:20 | ANESTHESIA ---
Pre-Anesthesia VS, & Labs - Diagnosis rectal bleeding, history of polyps - Procedure colonoscopy, hemmorhoid banding Vital Signs: Temp Pulse Resp BP Pulse Ox 36 C L 65 16 156/75 H 96 05/13/21 10:55 05/13/21 10:55 05/13/21 10:55 05/13/21 10:55 05/13/21 10:55 Height: 5 ft 6 in Weight (kg): 96.1 kg Body Mass Index: 34.2 BMI Classification: Obese - NPO >8 hours - Is Patient ?: No Home Medications and Allergies Home Medications: Ambulatory Orders Calcium Carbonate [Calcium] 600 mg PO ONCE 05/02/21 Cholecalciferol [Vitamin D3] 25 mcg PO ONCE 05/02/21 Doxazosin [Cardura] 2 mg PO QPM 05/02/21 Lactobacillus Combination No.4 [Probiotic] 1 each PO ONCE 05/02/21 Magnesium Oxide [Magnesium] 400 mg PO ONCE 05/02/21 [place]-3/Dha/Epa/Fish Oil [Fish Oil 1,000 mg Softgel] 1 each PO DAILY 05/02/21 Selenium 50 mcg PO ONCE 05/02/21 Vitamin K2 100 mcg PO 05/02/21 Diltiazem HCl [Diltiazem 24Hr ER] 240 mg PO BID 11/24/12 Losartan [Cozaar] 50 mg PO DAILY 11/24/12 PARoxetine [Paxil] 40 mg PO DAILY 11/24/12 Pravastatin Sodium [Pravachol] 20 mg PO QPM 11/24/12 Calcium Carbonate [Calcium] 600 mg PO ONCE 05/02/21 Cholecalciferol [Vitamin D3] 25 mcg PO ONCE 05/02/21 Doxazosin [Cardura] 2 mg PO QPM 05/02/21 Lactobacillus Combination No.4 [Probiotic] 1 each PO ONCE 05/02/21 Magnesium Oxide [Magnesium] 400 mg PO ONCE 05/02/21 [place]-3/Dha/Epa/Fish Oil [Fish Oil 1,000 mg Softgel] 1 each PO DAILY 05/02/21 Selenium 50 mcg PO ONCE 05/02/21 Vitamin K2 100 mcg PO 05/02/21 Allergies/Adverse Reactions: Allergies Allergy/AdvReac Type Severity Reaction Status Date / Time amitriptyline [Amitriptyline] Allergy unknown Verified 02/11/18 14:51 oxycodone [Oxycodone] Allergy unkown Verified 02/11/18 14:51 pseudoephedrine Allergy unknown Verified 02/11/18 14:51 Sulfa (Sulfonamide Allergy unkown Verified 02/11/18 14:51 Antibiotics) tetracycline [Tetracycline] Allergy unkown Verified 02/11/18 14:51 epinephrine AdvReac Unknown Verified 05/02/21 12:40 Anes History & Medical History - Anesthetic History Anesthesia Complications: reports: No previous complications - Medical History Cardiovascular: reports: Hypertension, High cholesterol Pulmonary: reports: Shortness of breath, Sleep apnea Gastrointestinal: reports: GERD, Colon polyps Urinary: reports: Frequency Neuro: reports: CVA Musculoskeletal: reports: Osteoarthritis Endocrine/Autoimmune: reports: None Skin: reports: None Smoking Status: Never smoker - Surgical History General: reports: Colonoscopy Eyes Ears Nose Throat (EENT): reports: Cataracts Gynecologic: reports: Hysterectomy Neurologic: reports: Craniotomy Dermatologic: reports: Skin cancer surgery Exam General: Alert, Oriented x3 Dental: WNL Mouth Opening: Greater than 4 Fingerbreadths Neck Mobility: Normal Mallampati classification: II Respiratory: Lungs clear Cardiovascular: Regular rate, Normal S1, Normal S2 Plan Anesthesia Type: Total IV Consent for Procedure(s) Verified and Reviewed: Yes Code Status: Attempt Resuscitation ASA classification: 3-Severe systemic disease Is this case an emergency?: No
--- NOTE | 2021-05-13 12:34 | OPERATIVE REPORT ---
Operative Report - General Procedure Date: 05/13/21 Planned Procedure: Examination under anesthesia with hemorrhoid banding following colonoscopy Pre-Op Diagnosis: Bleeding internal hemorrhoids Procedure Performed: Examination under anesthesia with banding of internal hemorrhoids Post Op Diagnosis: Bleeding internal hemorrhoids - Procedure Note Primary Surgeon: Vivienne Anesthesia Provider: KALYAN Echevarria Anesthesia Technique: MAC Pathology: None Estimated Blood Loss (mL): 1 Findings: 1 very large and two smaller internal hemorrhoid complexes with stigmata of recent bleeding Complications: None apparent - Other Other Information/Narrative: Colonoscopy was completed immediately prior to the banding procedure. Timeout was done at the start of the colonoscopy procedure.The patient remained sedated with monitored anesthesia care at this time. All elements of the surgical safety checklist were followed before, during, and after this procedure. The anoscope with obturator was lubricated and placed in the patient's anal canal. The obturator was removed and the slots aligned to allow access to 3 column internal hemorrhoids. The device, the [employer] multi band ligator-short sh ot-was placed into the anal canal. The tip of the device was placed in contact with the tissue to be treated beginning at the 4 o'clock position. The suction port was closed. A single band was deployed and the suction port released.The band was noted to be in place.We next addressed the hemorrhoid complex at 7:00.The tip of the device was placed in contact with the tissue, the suction port covered, a band deployed, the suction port released. Again we were able to see that the band was in place.We next addressed the hemorrhoid at the 11 o'clock position. This was the smallest of the 3. The tip of the device was placed in contact with the tissue, the suction port covered, a band deployed, the suction port released. Again we were able to see that the band was in place.Examination of the anal count canal revealed all [address] The anoscope was removed and the procedure concluded. The patient tolerated the procedure well. She was allowed awaken from sedation and taken to the postanesthesia care unit in good condition.
[2021-05-13] MEDS ORDERED: ACETAMINOPHEN 1,000 MG/100 ML 100 ML IV ONE (12:49)
[2021-05-13] MEDS ORDERED: LIDOCAINE OINTMENT 5% 35.44 GM TUBE ONE (13:19)
[2021-05-13 13:53] VITALS: BP 165/72
== END 2021-05-13 10:33 | disposition home or self-care (01) ==
LOC: SDS 10:32
PROVIDERS: ATTEND Surgery
PROC: 0DBN8ZZ Excision of Sigmoid Colon, Via Natural or Artificial Opening Endoscopic (ICD-10-PCS; 2021-05-13)
PROC: 0DBP8ZZ Excision of Rectum, Via Natural or Artificial Opening Endoscopic (ICD-10-PCS; 2021-05-13)
PROC: 06LY8CC Occlusion of Hemorrhoidal Plexus with Extraluminal Device, Via Natural or Artificial Opening Endoscopic (ICD-10-PCS; 2021-05-13)
PROC: 0DBK8ZZ Excision of Ascending Colon, Via Natural or Artificial Opening Endoscopic (ICD-10-PCS; principal; 2021-05-13 12:00)
DX: K62.5 Hemorrhage of anus and rectum (principal); K64.8 Other hemorrhoids; D12.2 Benign neoplasm of ascending colon; K62.1 Rectal polyp; K63.5 Polyp of colon; E66.9 Obesity, unspecified; Z68.34 Body mass index [BMI] 34.0-34.9, adult; I45.10 Unspecified right bundle-branch block; G47.30 Sleep apnea, unspecified
CPT/HCPCS: 45380; 46221; 93005; A9270; J0131; J7120

== ENCOUNTER 2021-05-27 13:04 | Outpatient (CLI) | payer MEDICARE, OTHER ==
[2021-05-27 13:29] LABS: BASOPHILS # (AUTO) 0.1 10^3/uL (0.0-0.1); BASOPHILS % (AUTO) 0.9 %; EOSINOPHILS # (AUTO) 0.1 10^3/uL (0.0-0.7); EOSINOPHILS % (AUTO) 2.1 %; HCT - HEMATOCRIT 41.9 % (37.0-47.0); LYMPHOCYTES # (AUTO) 1.5 10^3/uL (1.5-3.5); MEAN CORPUSCULAR HEMOGLOBIN 30.2 pg (27.0-31.0); MEAN CORPUSCULAR HGB CONC 33.4 g/dL (32.0-36.0); MEAN CORPUSCULAR VOLUME 90.3 fL (81.0-99.0); MEAN PLATELET VOLUME 9.2 fL (7.9-10.8); MONOCYTES # (AUTO) 0.6 10^3/uL (0.0-1.0); MONOCYTES % (AUTO) 8.7 %; NEUTROPHILS # (AUTO) 4.4 10^3/uL (1.5-6.6); NEUTROPHILS % (AUTO) 66.1 %; PLT - PLATELET COUNT 259 10^3/uL (130-450); RED BLOOD COUNT 4.64 10^6/uL (4.20-5.40); RED CELL DISTRIBUTION WIDTH 13.1 % (12.0-15.0); WHITE BLOOD COUNT 6.6 x10^3/uL (4.8-10.8)
[2021-05-27 13:47] LABS: ALBUMIN 4.1 g/dL (3.2-5.5); ALBUMIN/GLOBULIN RATIO 1.3 (1.0-2.2); ALKALINE PHOSPHATASE 97 IU/L (42-121); ALT ALANINE AMINOTRANSFERASE 27 IU/L (10-60); AST ASPARTATE AMINOTRANSFERASE 25 IU/L (10-42); BILIRUBIN,TOTAL 0.7 mg/dL (0.2-1.0); BUN - BLOOD UREA NITROGEN 19 mg/dL (6-20); CALCIUM 9.2 mg/dL (8.5-10.3); CARBON DIOXIDE - CO2 29 mmol/L (21-32); CHLORIDE 105 mmol/L (101-111); CHOL/HDL RATIO 3.2 (<4.4); CHOLESTEROL 240 mg/dL; CREATININE 0.9 mg/dL (0.4-1.0); GFR - MDRD 61 (>89); GLUCOSE 119 mg/dL (70-100); HDL CHOLESTEROL 74 mg/dL; LDL CHOLESTEROL,CALCULATED 145 mg/dL; POTASSIUM 3.8 mmol/L (3.5-5.0); SODIUM 140 mmol/L (135-145); TOTAL PROTEIN 7.2 g/dL (6.7-8.2); TRIGLYCERIDES 103 mg/dL; VLDL CHOLESTEROL 21 mg/dL
[2021-05-27 13:57] LABS: THYROID STIMULATING HORMONE 3.37 uIU/mL (0.34-5.60)
[2021-05-27 20:31] LABS: ESTIMATED AVERAGE GLUCOSE 108 mg/dL (70-100); HEMOGLOBIN A1c% 5.4 % (4.27-6.07)
== END 2021-05-27 13:05 | disposition home or self-care (01) ==
LOC: LAB 13:04
PROVIDERS: ATTEND Family Medicine
DX: K21.9 Gastro-esophageal reflux disease without esophagitis (principal); R73.03 Prediabetes; F32.A Depression, unspecified; E78.5 Hyperlipidemia, unspecified; I10 Essential (primary) hypertension
CPT/HCPCS: 36415; 80053; 80061; 83036; 83721; 84443; 85025

== ENCOUNTER 2021-12-16 12:45 | Outpatient (CLI) | payer MEDICARE, OTHER ==
[2021-12-16 13:33] LABS: ALBUMIN 3.7 g/dL (3.2-5.5); ALBUMIN/GLOBULIN RATIO 1.2 (1.0-2.2); BILIRUBIN,TOTAL 0.8 mg/dL (0.2-1.0); CALCIUM 9.4 mg/dL (8.5-10.3); TOTAL PROTEIN 6.8 g/dL (6.7-8.2)
[2021-12-16 13:38] LABS: BASOPHILS # (AUTO) 0.1 10^3/uL (0.0-0.1); BASOPHILS % (AUTO) 0.8 %; EOSINOPHILS # (AUTO) 0.2 10^3/uL (0.0-0.7); EOSINOPHILS % (AUTO) 3.8 %; HCT - HEMATOCRIT 40.4 % (37.0-47.0); HGB - HEMOGLOBIN 13.8 g/dL (12.0-16.0); LYMPHOCYTES # (AUTO) 1.4 10^3/uL (1.5-3.5); LYMPHOCYTES % (AUTO) 22.7 %; MEAN CORPUSCULAR HEMOGLOBIN 30.5 pg (27.0-31.0); MEAN CORPUSCULAR HGB CONC 34.2 g/dL (32.0-36.0); MEAN CORPUSCULAR VOLUME 89.4 fL (81.0-99.0); MEAN PLATELET VOLUME 9.6 fL (7.9-10.8); MONOCYTES # (AUTO) 0.5 10^3/uL (0.0-1.0); MONOCYTES % (AUTO) 8.2 %; NEUTROPHILS # (AUTO) 3.9 10^3/uL (1.5-6.6); NEUTROPHILS % (AUTO) 64.3 %; PLT - PLATELET COUNT 229 10^3/uL (130-450); RED BLOOD COUNT 4.52 10^6/uL (4.20-5.40); RED CELL DISTRIBUTION WIDTH 13.5 % (12.0-15.0)
[2021-12-16 13:41] LABS: ESTIMATED AVERAGE GLUCOSE 103 mg/dL (70-100); HEMOGLOBIN A1c% 5.2 % (4.27-6.07)
== END 2021-12-16 12:46 | disposition home or self-care (01) ==
LOC: LAB 12:45
PROVIDERS: ATTEND Family Medicine
DX: R73.03 Prediabetes (principal); K64.8 Other hemorrhoids; K62.5 Hemorrhage of anus and rectum
CPT/HCPCS: 36415; 80053; 80061; 83036; 83721; 84443; 85025

== ENCOUNTER 2022-04-28 13:08 | Outpatient (CLI) | payer MEDICARE, OTHER ==
--- NOTE | 2022-04-29 11:41 | Mammography Report ---
BILATERAL DIGITAL SCREENING MAMMOGRAM 3D/2D: 04/28/2022 CLINICAL: Routine screening. Family history of breast cancer. Comparison is made to exams dated: 12/31/2017 mammogram, 03/17/2016 mammogram, 02/11/2012 mammogram, 02/04/2012 mammogram, and 12/25/2006 mammogram - [facility]. Both breasts are almost entirely fatty (category a/<25% glandular tissue). No significant masses, calcifications, or other findings are seen in either breast. There has been no significant interval change. IMPRESSION: NEGATIVE There is no mammographic evidence of malignancy. A 1 year screening mammogram is recommended. Based on the Tyrer Cuzick model (a risk assessment model) the patients lifetime risk is 2.9% and her 10 year risk is 0.0%. According to the ACR, ACS, and NCCN guidelines, an annual breast MRI exam keisha g with mammogram is recommended if the patients lifetime risk is 20% or greater. This exam was interpreted at Station ID: [id number]. NOTE: For mammograms, a report in lay terms will be sent to the patient. Approximately 15% of breast malignancies will not be visualized mammographically. In the management of a palpable breast mass, a negative mammogram must not discourage biopsy of a clinically suspicious lesion. Electronically Signed By: Joe Wesley M.D. acr/raysa:04/28/2022 15:27:10 ACR BI-RADS Category 1: Negative 3341F PARENCHYMAL PATTERN: (F) - The breast(s) demonstrate(s) diffuse fatty replacement. BI-RADS CATEGORY: (1) - 1 RECOMMENDATION: (ANNUAL) - Recommend routine annual screening mammography. [id number] 1 year screening LATERALITY: (B)
== END 2022-04-28 13:09 | disposition home or self-care (01) ==
LOC: DI 13:08
DX: Z12.31 Encounter for screening mammogram for malignant neoplasm of breast (principal); Z80.3 Family history of malignant neoplasm of breast

== ENCOUNTER 2022-12-16 08:00 | Outpatient (CLI) | payer MEDICARE, OTHER | END 2022-12-16 23:59 | disposition home or self-care (01) | LOC: LAB 08:00 | PROVIDERS: ATTEND Physician Assistant Medical | DX: N39.0 Urinary tract infection, site not specified (principal) | CPT/HCPCS: 87086; 87181 ==

== ENCOUNTER 2023-01-16 12:33 | Outpatient (CLI) | payer MEDICARE, OTHER ==
[2023-01-16 12:59] LABS: BASOPHILS # (AUTO) 0.1 10^3/uL (0.0-0.1); BASOPHILS % (AUTO) 0.9 %; EOSINOPHILS # (AUTO) 0.2 10^3/uL (0.0-0.7); EOSINOPHILS % (AUTO) 3.1 %; HCT - HEMATOCRIT 44.4 % (37.0-47.0); HGB - HEMOGLOBIN 14.5 g/dL (12.0-16.0); LYMPHOCYTES # (AUTO) 1.4 10^3/uL (1.5-3.5); LYMPHOCYTES % (AUTO) 21.6 %; MEAN CORPUSCULAR HEMOGLOBIN 29.4 pg (27.0-31.0); MEAN CORPUSCULAR HGB CONC 32.7 g/dL (32.0-36.0); MEAN CORPUSCULAR VOLUME 90.1 fL (81.0-99.0); MEAN PLATELET VOLUME 9.4 fL (7.9-10.8); MONOCYTES # (AUTO) 0.5 10^3/uL (0.0-1.0); MONOCYTES % (AUTO) 8.1 %; NEUTROPHILS # (AUTO) 4.3 10^3/uL (1.5-6.6); PLT - PLATELET COUNT 235 10^3/uL (130-450); RED BLOOD COUNT 4.93 10^6/uL (4.20-5.40); RED CELL DISTRIBUTION WIDTH 13.2 % (12.0-15.0); WHITE BLOOD COUNT 6.4 x10^3/uL (4.8-10.8)
[2023-01-16 13:03] LABS: ESTIMATED AVERAGE GLUCOSE 111 mg/dL (70-100); HEMOGLOBIN A1c% 5.5 % (4.27-6.07)
[2023-01-16 13:04] LABS: ALBUMIN 4.3 g/dL (3.2-5.5); ALBUMIN/GLOBULIN RATIO 1.8 (1.0-2.2); ALKALINE PHOSPHATASE 115 IU/L (42-121); ALT ALANINE AMINOTRANSFERASE 19 IU/L (10-60); AST ASPARTATE AMINOTRANSFERASE 20 IU/L (10-42); BILIRUBIN,TOTAL 0.6 mg/dL (0.2-1.0); BUN - BLOOD UREA NITROGEN 16 mg/dL (6-20); CALCIUM 9.7 mg/dL (8.5-10.3); CARBON DIOXIDE - CO2 30 mmol/L (21-32); CHLORIDE 107 mmol/L (101-111); CHOL/HDL RATIO 3.2 (<4.4); CHOLESTEROL 219 mg/dL; GFR - MDRD 54 (>89); GLUCOSE 111 mg/dL (74-104); HDL CHOLESTEROL 68 mg/dL; LDL CHOLESTEROL,CALCULATED 119 mg/dL; LDL/HDL RATIO 1.8 (<4.4); POTASSIUM 4.1 mmol/L (3.5-4.5); SODIUM 142 mmol/L (135-145); TOTAL PROTEIN 6.7 g/dL (6.4-8.9); TRIGLYCERIDES 162 mg/dL (48-352); VLDL CHOLESTEROL 32 mg/dL
== END 2023-01-16 12:34 | disposition home or self-care (01) ==
LOC: LAB 12:33
PROVIDERS: ATTEND Family Medicine
DX: R73.9 Hyperglycemia, unspecified (principal); K64.8 Other hemorrhoids; K21.9 Gastro-esophageal reflux disease without esophagitis; E78.5 Hyperlipidemia, unspecified; I69.251 Hemiplegia and hemiparesis following other nontraumatic intracranial hemorrhage affecting right dominant side; I10 Essential (primary) hypertension
CPT/HCPCS: 36415; 80053; 80061; 83036; 83721; 84443; 85025

== ENCOUNTER 2023-02-08 03:35 | Outpatient (CLI) | payer MEDICARE, OTHER | END 2023-02-08 23:59 | disposition left against medical advice (07) | LOC: EMS 03:35 | DX: R53.1 Weakness (principal) ==

== ENCOUNTER 2023-02-08 12:56 | Outpatient (CLI) | payer MEDICARE, OTHER | END 2023-02-08 12:57 | disposition EMS.NT | LOC: EMS 12:56 | DX: S90.122A Contusion of left lesser toe(s) without damage to nail, initial encounter (principal); W19.XXXA Unspecified fall, initial encounter; Y92.002 Bathroom of unspecified non-institutional (private) residence as the place of occurrence of the external cause ==

== ENCOUNTER 2023-02-08 14:07 | Emergency (ER) | payer MEDICARE, OTHER ==
[2023-02-08 14:25] VITALS: BP 167/66; O2SAT 99
--- NOTE | 2023-02-08 14:28 | ED Physician Documentation ---
History of Present Illness - Stated complaint Stated Complaint: BILAT FOOT PX,SWELLING - Chief complaint Chief Complaint: Trauma Ext - Additonal information Additional information: -year-old female 77-year-old female is brought to the emergency department for evaluation of bilateral foot pain. Patient has a history of hypertension and previous stroke. Much of the history provided by . States that last night when patient was trying to go to the bathroom she began complaining of pain in both her feet. This morning we note significant swelling and ecchymosis to the left index toe which is new from yesterday. Patient denies any falls or trauma. The doubts any falls as he states that if she had fallen she could not have gotten up on her own. reports that now that she is unable to bear weight on her feet he is having a difficult time transferring her from bed to wheelchair or commode. She does have a caregiver that comes in 2 days a week. Patient has taken nothing for pain. Review of Systems Constitutional: denies: Fever Musculoskeletal: reports: Joint pain PD PAST MEDICAL HISTORY - Past Medical History Past Medical History: Yes Cardiovascular: Hypertension, High cholesterol Respiratory: Shortness of breath, Sleep apnea Neuro: CVA Endocrine/Autoimmune: None GI: GERD, Colon polyps : Frequency HEENT: None Psych: Depression, Anxiety Musculoskeletal: Osteoarthritis Derm: None - Past Surgical History Past Surgical History: Yes General: Colonoscopy /[employer]OST/HOSTESS: Hysterectomy Neuro: Craniotomy HEENT: Cataracts Derm: Skin cancer surgery - Present Medications Home Medications: Ambulatory Orders Medication Instructions Recorded Confirmed Diltiazem HCl [Diltiazem 24Hr ER] 240 mg PO BID 11/24/12 11/03/21 Losartan [Cozaar] 50 mg PO DAILY 11/24/12 11/03/21 PARoxetine [Paxil] 40 mg PO DAILY 11/24/12 11/03/21 Pravastatin Sodium [Pravachol] 20 mg PO QPM 11/24/12 11/03/21 Calcium Carbonate [Calcium] 600 mg PO ONCE 05/02/21 11/03/21 Cholecalciferol [Vitamin D3] 25 mcg PO ONCE 05/02/21 11/03/21 Doxazosin [Cardura] 2 mg PO QPM 05/02/21 11/03/21 Lactobacillus Combination No.4 1 each PO ONCE 05/02/21 11/03/21 [Probiotic] Magnesium Oxide [Magnesium] 400 mg PO ONCE 05/02/21 11/03/21 [place]-3/Dha/Epa/Fish Oil [Fish Oil 1 each PO DAILY 05/02/21 11/03/21 1,000 mg Softgel] Selenium 50 mcg PO ONCE 05/02/21 11/03/21 Vitamin K2 100 mcg PO DAILY 05/02/21 11/03/21 - Allergies Allergies/Adverse Reactions: Allergies Allergy/AdvReac Type Severity Reaction Status Date / Time oxycodone [Oxycodone] Allergy unkown Verified 02/08/23 14:29 pseudoephedrine Allergy unknown Verified 02/08/23 14:29 Sulfa (Sulfonamide Allergy unkown Verified 02/08/23 14:29 Antibiotics) tetracycline [Tetracycline] Allergy unkown Verified 02/08/23 14:29 amitriptyline [Amitriptyline] AdvReac unknown Verified 02/08/23 14:29 epinephrine AdvReac Unknown Verified 02/08/23 14:29 - Social History Does the pt smoke?: No Smoking Status: Never smoker Does the pt drink ETOH?: Yes Does the pt have substance abuse?: No - Immunizations Immunizations are current?: Yes - POLST Patient has POLST: No PD ED PE NORMAL - General General: No acute distress, Other (disheveled) - Abdomen Abdomen: Normal bowel sounds, Soft - Derm Derm: Normal color, Warm and dry, Other (Swelling and ecchymosis to the left index toe extending to the dorsum of the foot.) - Extremities Extremities: Other (Swelling and ecchymosis left second toe extending to the dorsum of the foot with most of the pain at MCP joint. 1+ DP pulse.) - Neuro Neuro: orthopedics nurse 2-12 intact Eye Opening: Spontaneous Motor: Obeys Commands Verbal: Confused GCS Score: 14 Results - Vitals Vitals: Vital Signs - 24 hr 02/08/23 14:12 Temperature 36.6 C Heart Rate 71 Respiratory 16 Rate Blood Pressure 167/66 H O2 Saturation 99 Oxygen O2 Source Room air - Rads (name of study) right foot xray Relevant Findings:: EMP independent interpretation of test (osteopenia; no obvious fx) left foot xray Relevant Findings:: EMP independent interpretation of test (osteopenia; no obvious fx) PD Medical Decision Making - ED course Complexity details: reviewed results, considered differential, d/w patient, d/w family ED course: 77-year-old female who has a prior history of intracranial hemorrhage, hypertension presents emergency department for evaluation of bilateral foot pain and now inability to bear weight. She denies falls or trauma though this morning both she and her note significant swelling ecchymosis to the left second toe. Her , who is her primary caregiver, reports that he is having difficulty transferring her from bed to wheelchair and commode. At baseline she is typically ambulatory with a walker. X-rays taken of both feet show no obvious fracture though the patient is noted to be osteopenic. Given poor pain control she was administered Tylenol 650 mg once as well as meloxicam per the 's preference here in the emergency department. On reevaluation she has marked improvement in pain and is now able to ambulate at baseline with her walker. Her feels comfortable with d ischarge home. He reports that she does have a refill prescription available for meloxicam which she will order tomorrow. Otherwise I have recommended Tylenol and icing the feet. Usual emergent return precautions were discussed for worsening symptoms. Departure - Departure Disposition: Home, Self Care Clinical Impression: Bilateral foot pain Contusion of left foot including toes Qualifiers: Encounter type: initial encounter Qualified Code(s): S90.32XA - Contusion of left foot, initial encounter Comments: The x-rays of both of Angie's feet do not show an obvious fracture though I suspect that she has stubbed the left foot because she has some bruising on the second toe. I recommend that she wear the postoperative shoes that you brought into the hospital when out of bed. In general I would like her to take Tylenol 500 mg 3- 4 times a day for pain. She can take the meloxicam twice daily. osteopenic please call in the refill tomorrow. Do not use this for longer than 1 week as it does increase the risk of stomach discomfort, worsening kidney function. Forms: PCP List
[2023-02-08] MEDS ORDERED: IBUPROFEN 600 MG TABLET PO STA (14:52)
[2023-02-08] MEDS ORDERED: ACETAMINOPHEN 325 MG TABLET PO STA (14:52)
[2023-02-08] MEDS ORDERED: MELOXICAM 7.5 MG TABLET PO STA (14:59)
--- NOTE | 2023-02-08 14:59 | XRAY Report ---
PROCEDURE: Foot 2 View RT INDICATIONS: pain TECHNIQUE: 2 views of the foot were acquired. COMPARISON: None. FINDINGS: Bones: No fractures or dislocations. No suspicious bony lesions. Arthritic IP narrowing is presen t. Soft tissues: No suspicious soft tissue calcifications or masses. IMPRESSION: No visualized acute fracture or dislocation. However, occult injury cannot be excluded. Recommend claudy rt interval imaging follow-up in 7-10 days as clinically indicated for additional evaluation. Reviewed by: Connie Virk MD on 02/08/2023 2:58 PM PST Approved by: Connie Vrik MD on 02/08/2023 2:58 PM PST Station ID: [id number]
--- NOTE | 2023-02-08 15:00 | XRAY Report ---
PROCEDURE: Foot 3 View LT INDICATIONS: bruised toe; r/o fx TECHNIQUE: 3 views of the foot were acquired. COMPARISON: None. FINDINGS: Bones: No fractures or dislocations. No suspicious bony lesions. Scattered IP arthritic change. Soft tissues: No suspicious soft tissue calcifications or masses. IMPRESSION: No visualized acute fracture or dislocation. However, occult injury cannot be excluded. Recommend claudy rt interval imaging follow-up in 7-10 days as clinically indicated for additional evaluation. Reviewed by: Connie Virk MD on 02/08/2023 2:58 PM PST Approved by: Connie Virk MD on 02/08/2023 2:58 PM PST Station ID: [id number]
== END 2023-02-08 16:43 | disposition home or self-care (01) ==
LOC: ED 14:07
DX: M79.672 Pain in left foot (principal); M79.671 Pain in right foot; S90.32XA Contusion of left foot, initial encounter; X58.XXXA Exposure to other specified factors, initial encounter
CPT/HCPCS: 73620; 73630; 99283; A9270

== ENCOUNTER 2023-03-07 16:04 | Outpatient (CLI) | payer MEDICARE, OTHER | END 2023-03-07 16:05 | disposition EMS.NT | LOC: EMS 16:04 | DX: S00.01XA Abrasion of scalp, initial encounter (principal); W01.198A Fall on same level from slipping, tripping and stumbling with subsequent striking against other object, initial encounter; Y92.008 Other place in unspecified non-institutional (private) residence as the place of occurrence of the external cause ==

== ENCOUNTER 2023-03-20 07:14 | Outpatient (CLI) | payer MEDICARE, OTHER ==
--- NOTE | 2023-03-20 13:54 | MRI Report ---
PROCEDURE: LOWER LEG (TIB-FIB) WO - RT INDICATIONS: RIGHT LEG PAIN TECHNIQUE: Noncontrast coronal and sagittal T1 spin echo and STIR; axial T1 spin echo and T2 fast spin echo with fat saturation through the right lower leg. COMPARISON: Right foot radiograph dated 02/08/2023. FINDINGS: Image quality: Excellent. Bones: Osteoarthritic changes are seen in right knee and ankle joints. There is marrow edema involvin g distal portion of tibia with subtle linear hypointense signal involving posterior aspect of distal tibia concerning for subtle nondisplaced fracture. Subtle linear hypointense signal also seen involvi ng distal fibular shaft/lateral malleolus with surrounding marrow edema. There is also marrow edema i nvolving posterior aspect of lateral femoral condyle without definite fracture line or cortical disru ption. No other area of abnormal marrow signal is seen. No suspicious intraosseous lesion. Soft tissues: There is diffuse soft tissue swelling surrounding ankle joint. Mild edema involving fl exor muscles in distal lower leg and ankle joint is seen extending to musculotendinous junction. No f ull-thickness muscle or tendon rupture. No discrete soft tissue mass or drainable fluid collection. IMPRESSION: 1. Finding is consistent with subacute appearing nondisplaced fractures involving posterior aspect of distal tibia and distal fibular shaft/lateral malleolus with extensive marrow edema surrounding ankl e soft tissue swelling. 2. Suggestion of bony contusion involving posterior aspect of lateral femoral condyle. 3. [id number] right knee and ankle joint osteoarthritis. No other fracture or dislocation. 4. Muscle strain involving flexor muscles in distal lower leg extending to musculotendinous junction. No full-thickness muscle or tendon rupture. Reviewed by: Raymundo Landrum MD on 03/20/2023 1:52 PM PST Approved by: Raymundo Landrum MD on 03/20/2023 1:52 PM PST Station ID: [id number]
== END 2023-03-20 07:15 | disposition home or self-care (01) ==
LOC: DI 07:14
PROVIDERS: ATTEND Student in an Organized Health Care Education/Training Program
DX: M17.11 Unilateral primary osteoarthritis, right knee (principal); M19.071 Primary osteoarthritis, right ankle and foot; S86.811A Strain of other muscle(s) and tendon(s) at lower leg level, right leg, initial encounter

== ENCOUNTER 2023-04-11 17:25 | Outpatient (CLI) | payer MEDICARE, OTHER | END 2023-04-11 17:26 | disposition EMS.NT | LOC: EMS 17:25 | DX: Z04.3 Encounter for examination and observation following other accident (principal); W01.0XXA Fall on same level from slipping, tripping and stumbling without subsequent striking against object, initial encounter; Y92.003 Bedroom of unspecified non-institutional (private) residence as the place of occurrence of the external cause ==

== ENCOUNTER 2023-05-04 11:17 | Outpatient (CLI) | payer MEDICARE, OTHER | END 2023-05-04 11:18 | disposition EMS.NT | LOC: EMS 11:17 | DX: Z03.89 Encounter for observation for other suspected diseases and conditions ruled out (principal) ==

== ENCOUNTER 2023-05-30 12:56 | Outpatient (CLI) | payer MEDICARE, OTHER | END 2023-05-30 23:59 | disposition left against medical advice (07) | LOC: EMS 12:56 | DX: R11.10 Vomiting, unspecified (principal); W01.0XXA Fall on same level from slipping, tripping and stumbling without subsequent striking against object, initial encounter; Y92.003 Bedroom of unspecified non-institutional (private) residence as the place of occurrence of the external cause ==